=== PATIENT | male | born 2000 | race Caucasian/White ===

== ENCOUNTER 2023-01-24 22:51 | Emergency (ER) | payer BC ==
[~2023-01-24] VITALS: Ht 177.8 cm; Wt 149.7 kg
[2023-01-24] MEDS ORDERED: IBUPROFEN 400 MG TABLET PO ONE (23:30)
[2023-01-24] MEDS ORDERED: CYCLOBENZAPRINE 10 MG TABLET PO ONE (23:30)
[2023-01-24] MEDS ORDERED: CYCL5TAB PO (23:31)
[2023-01-24 23:45] VITALS: BP 119/95; TEMP 98.7; O2SAT 97
== END 2023-01-24 23:45 | disposition home or self-care (01) ==
LOC: ER 23:11
DX: M54.50 Low back pain, unspecified (principal); I10 Essential (primary) hypertension